=== PATIENT | female | born 1995 | race African-American/Black ===

== ENCOUNTER 2020-12-09 10:19 | Emergency (ER) | payer MEDICAID ==
[~2020-12-09] VITALS: Ht 167.6 cm; Wt 75.0 kg
[2020-12-09] MEDS ORDERED: ACETAMINOPHEN WITH CODEINE 300/30MG TABLET PO ONE (11:30)
[2020-12-09 11:33] VITALS: BP 150/78
[2020-12-09] MEDS ORDERED: IBUP-2029 MT (12:37)
== END 2020-12-09 13:30 | disposition home or self-care (01) ==
LOC: ER 10:19
DX: S80.12XA Contusion of left lower leg, initial encounter (principal); V03.90XA Pedestrian on foot injured in collision with car, pick-up truck or van, unspecified whether traffic or nontraffic accident, initial encounter; Y93.89 Activity, other specified; Y92.488 Other paved roadways as the place of occurrence of the external cause
CPT/HCPCS: 73502; 73552; 81025; 99284